=== PATIENT | male | born 2000 ===

== ENCOUNTER 2018-04-01 10:21 | Emergency (ER) | payer SELFPAY ==
[2018-04-01 10:28] VITALS: BP 134/52
--- NOTE | 2018-04-01 11:04 | Emergency Department Report ---
Chief Complaint: Urogenital-Male Stated Complaint: MEDICAL CLEARENCE/STD Time Seen by Provider: 04/01/18 11:01 - HPI History of Present Illness: This is a 17-year-old male nontoxic, well nourished in appearance, no acute signs of distress presents to the ED for a STD check up. Patient states his girlfriend has been diagnosed with chlamydia and he wants to be tested. Patient currently denies any symptoms and stated he is asymptomatic. Patient denies any penile discharge. Patient denies any testicular pain, penile ulcers , or lesions. Patient denies any urinary symptoms. Patient denies any fever, chills, nausea, vomiting, chest pain, short of breath, abdominal pain, back pain , stiff neck or headache. Patient denies any allergies or past medical history. - Exam Vital Signs: Vital Signs 04/01/18 10:26 Temperature 97.4 F L Pulse Rate 58 L Respiratory 16 Rate Blood Pressure 134/52 O2 Sat by Pulse 100 Oximetry Physical Exam: GENERAL: The patient is a well-developed, well-nourished in no apparent distress. Patient is alert and acting appropriately for age. Alert and oriented 3, no apparent distress, normal gait, atraumatic. LUNGS: Clear to auscultation. Non labor breathing. No intercostal retractions. Symmetrical with respiration, no wheezing, no rales, or crackles. HEART: Regular rate and rhythm without murmur, rubs or gallops. No reproducible. S1, S2 present, regular rate and rhythm without murmur, no rubs, no gallops. ABDOMEN: Soft, nontender, and nondistended. Positive bowel sounds. No hepatosplenomegaly was noted. No guarding or rebound tenderness, negative epigastric bruit. Negative psoas sign, negative deleon sign, negative McBurneys sign MSE screening note: Focused history and physical exam performed. Due to findings the following was ordered: ED Medical Decision Making - Medical Decision Making This is a 17-year-old male that presents with nonmedical emergency. Patient is stable and was examined by me. Patient is asymptomatic and denies any symptoms. Patient states he just wants to be tested for STD. [employer] Adjuster has approached patient for a co-pay but patient refused. I will refer the patient [facility]. At time of discharge, the patient does not seem toxic or ill in appearance. No acute signs of distress noted. Patient agrees to discharge treatment plan of care. No further questions noted by the patient. ED Disposition for MSE Clinical Impression: Possible exposure to STD Disposition: MED SCREENING EXAM-LEFT Is pt being admited?: No Condition: Stable Referrals: FERNANDO DOUGLASS MD [Primary Care Provider] - 3-5 Days [facility] [Outside] - 3-5 Days [facility] [Outside] - 3-5 Days LADI TERRAZAS MD [Staff Physician] - 3-5 Days
== END 2018-04-01 11:05 | disposition left against medical advice (07) ==
LOC: ED 10:21
DX: Z11.3 Encounter for screening for infections with a predominantly sexual mode of transmission (principal)
CPT/HCPCS: 99281